=== PATIENT | male | born 1950 | race Caucasian/White ===

== ENCOUNTER 2019-10-24 14:04 | Emergency (ER) | payer MEDICARE ==
[~2019-10-24] VITALS: Ht 165.1 cm; Wt 65.8 kg
[2019-10-24 14:42] LABS: BASOPHILS ABSOLUTE AUTO 0.03 K/mm3 (0.00-0.23); BASOPHILS PERCENT AUTO 0 % (0-2); EOSINOPHILS ABSOLUTE AUTO 0.19 K/mm3 (0.00-0.68); EOSINOPHILS PERCENT AUTO 2 % (0-6); Hematocrit 47.6 % (37.0-53.0); Hemoglobin 16.2 g/dL (13.5-17.5); IMMATURE GRAN ABSOLUTE AUTO 0.03 K/mm3 (0.00-0.10); IMMATURE GRAN PERCENT AUTO 0 % (0-1); LYMPHOCYTES ABSOLUTE AUTO 3.05 K/mm3 (0.84-5.20); LYMPHOCYTES PERCENT AUTO 34 % (21-46); MONOCYTES PERCENT AUTO 7 % (4-13); Mean Corpuscular Volume 94 fL (80-100); Mean Platelet Volume 10.4 fL (9.1-12.4); NEUTROPHILS ABSOLUTE AUTO 4.98 K/mm3 (1.96-9.15); NEUTROPHILS PERCENT AUTO 56 % (41-73); Platelet Count 173 K/mm3 (150-400); RDW Coefficient Variation 12.6 % (11.7-14.2); RDW Standard Deviation 43.4 fL (35.1-46.3); Red Blood Cell Count 5.06 M/mm3 (4.30-5.90); White Blood Cell Count 8.88 K/mm3 (4.00-11.30)
[2019-10-24] MEDS ORDERED: VENL25 PO (14:45)
[2019-10-24] MEDS ORDERED: ATOR20 PO (14:45)
[2019-10-24] MEDS ORDERED: GABA300 PO (14:45)
[2019-10-24] MEDS ORDERED: ASPI81CH PO (14:46)
[2019-10-24 14:56] LABS: Prothrombin Time Results 10.7 Sec (9.7-11.5)
[2019-10-24 15:06] LABS: Alanine Aminotransfer (ALT/SGP 29 U/L (12-78); Albumin, Blood 3.4 g/dL (3.4-5.0); Albumin/Globulin Ratio 0.9 (0.8-1.8); Alk Phos 126 U/L (50-136); Anion Gap 6 mmol/L (6-16); Aspartate Aminotrans (AST/SGOT 18 U/L (12-37); Bilirubin, Total 0.4 mg/dL (0.1-1.0); Blood Urea Nitrogen 16 mg/dL (8-24); CO2, Blood 27 mmol/L (21-32); Calcium, Blood 8.8 mg/dL (8.5-10.1); Chloride, Blood 107 mmol/L (98-108); Creatinine, Blood 1.07 mg/dL (0.60-1.20); Ethanol (Alcohol), Blood, Med <3 mg/dL; Globulin, Blood 3.9 g/dL (2.2-4.0); Glomerular Filtration Rate >60 (60-); Glucose, Blood 169 mg/dL (70-99); Potassium, Blood 4.1 mmol/L (3.5-5.5); Sodium, Blood 140 mmol/L (136-145); Total Protein, Blood 7.3 g/dL (6.4-8.2)
== END 2019-10-24 16:49 | disposition home or self-care (01) ==
LOC: ER 14:04
PROVIDERS: Physician Assistant
DX: R41.0 Disorientation, unspecified (principal); R51 Headache; Z88.5 Allergy status to narcotic agent; Z79.899 Other long term (current) drug therapy; Z79.82 Long term (current) use of aspirin; I25.2 Old myocardial infarction; E78.5 Hyperlipidemia, unspecified; F17.200 Nicotine dependence, unspecified, uncomplicated
CPT/HCPCS: 70450; 80053; 82947; 85025; 85610; 93005; 93010; 96374; 96375; 99285-25; A9270-GY; G0480; J1200; J1885; J2765

== ENCOUNTER 2020-08-07 15:17 | Emergency (ER) | payer OTHER ==
[~2020-08-07] VITALS: Ht 167.6 cm; Wt 68.0 kg
[~2020-08-07 15:17] MED LIST: ASPI81CH PO; ATOR20 PO; GABA300 PO; VENL25 PO
[2020-08-07] MEDS ORDERED: IBUP800 PO (17:14)
[2020-08-07] MEDS ORDERED: OXYACE7.5T PO (17:14)
== END 2020-08-07 18:05 | disposition home or self-care (01) ==
LOC: ER 15:17
DX: S22.32XA Fracture of one rib, left side, initial encounter for closed fracture (principal); F17.200 Nicotine dependence, unspecified, uncomplicated; Z88.5 Allergy status to narcotic agent; Z79.82 Long term (current) use of aspirin; Z79.899 Other long term (current) drug therapy; W10.9XXA Fall (on) (from) unspecified stairs and steps, initial encounter
CPT/HCPCS: 71101; 99283-25

== ENCOUNTER 2024-03-28 18:40 | Observation (INO) | payer MEDICARE ==
[~2024-03-28] VITALS: Ht 167.6 cm; Wt 60.5 kg
[~2024-03-28 18:40] MED LIST changes: +IBUP800 PO; +OXYACE7.5T PO
[2024-03-28 18:59] LABS: BASOPHILS ABSOLUTE AUTO 0.04 K/mm3 (0.00-0.23); BASOPHILS PERCENT AUTO 1 % (0-2); EOSINOPHILS ABSOLUTE AUTO 0.24 K/mm3 (0.00-0.68); EOSINOPHILS PERCENT AUTO 3 % (0-6); Hematocrit 45.3 % (37.0-53.0); IMMATURE GRAN ABSOLUTE AUTO 0.02 K/mm3 (0.00-0.10); IMMATURE GRAN PERCENT AUTO 0 % (0-1); LYMPHOCYTES ABSOLUTE AUTO 4.07 K/mm3 (0.84-5.20); LYMPHOCYTES PERCENT AUTO 46 % (21-46); MONOCYTES ABSOLUTE AUTO 0.67 K/mm3 (0.16-1.47); MONOCYTES PERCENT AUTO 8 % (4-13); Mean Corpuscular HGB 31.6 pg (26.0-34.0); Mean Corpuscular HGB Conc 35.3 g/dL (31.5-36.5); Mean Corpuscular Volume 89 fL (80-100); Mean Platelet Volume 9.7 fL (9.1-12.4); NEUTROPHILS PERCENT AUTO 43 % (41-73); Platelet Count 206 K/mm3 (150-400); RDW Coefficient Variation 13.1 % (11.7-14.2); RDW Standard Deviation 42.8 fL (35.1-46.3); Red Blood Cell Count 5.07 M/mm3 (4.30-5.90); White Blood Cell Count 8.84 K/mm3 (4.00-11.30)
[2024-03-28 19:18] LABS: Albumin, Blood 3.6 g/dL (3.4-5.0); Albumin/Globulin Ratio 0.9 (0.8-1.8); Bilirubin, Total 0.2 mg/dL (0.1-1.0); Bun/Creatinine Ratio 19.6 (12.0-20.0); Calcium, Blood 9.2 mg/dL (8.5-10.1); Creatinine, Blood 1.12 mg/dL (0.60-1.20); Globulin, Blood 3.9 g/dL (2.2-4.0); Potassium, Blood 4.2 mmol/L (3.5-5.5); Total Protein, Blood 7.5 g/dL (6.4-8.2)
[2024-03-28] MEDS ORDERED: FLU VACC TS2024-25(6MOS UP)/PF 45 MCG/0.5 ML SYRINGE IM ONE (20:10)
[2024-03-28] MEDS ORDERED: NS 1,000 ML IV SCH (20:15)
[2024-03-28] MEDS ORDERED: Dose Adjust by Pharmacy XX STA (20:35)
[2024-03-28] MEDS ORDERED: Heparin Sodium,Porcine/0.5 NS 500 ML IV SCH (20:35)
[2024-03-28] MEDS ORDERED: Heparin Sodium 5000 Units/ML 1ML MDV IV ONE (20:35)
[2024-03-28 20:56] LABS: Anti-Xa UFH, PHA Monitoring <0.10 IU/mL; International Normalized Ratio 1.06; Prothrombin Time Results 11.3 Sec (9.7-11.5)
[2024-03-28] MEDS ORDERED: Metoprolol Tartrate 25 MG Tab PO SCH (21:00)
[2024-03-28] MEDS ORDERED: DESV50 PO (22:35)
[2024-03-28 23:00] VITALS: BP 120/66
[2024-03-29] MEDS ORDERED: Insulin Human Lispro 100 Units/ML 3ML Syringe SC SCH
[2024-03-29] MEDS ORDERED: Dose Adjust by Pharmacy XX STA ×3 (03:41→16:27)
[2024-03-29 04:20] VITALS: BP 118/67
--- NOTE | 2024-03-29 04:30 | NUR ---
SHIFT SUMMARY ROCIO WAS ALERT, FULLY ORIENTED, AND ABLE TO SELF TRANSFER TO BED ON ARRIVAL FROM ED. PT REPORTS THAT THE SYMPTOMS THAT BROUGHT HIM IN HAVE SUBSIDED. PT DENIES PAIN, CHEST PRESSURE, DIZZINESS, AND SOB. HE STATES THAT HE IS FEELING AT HIS BASELINE AT THIS TIME. ADMIT COMPLETE. PT IND IN ROOM. PT PRESENT AT BEDSIDE. TELE REPORTS ONE 6 SECOND RUN OF SVT, PT WAS ASYMPTOMATIC. NO NEW COMPLAINTS, NO ACUTE EVENTS, NO NOTED CHANGES TO PT CONDITION SINCE ARRIVAL. PT RESTING WITH CALL LIGHT IN REACH.
[2024-03-29 07:44] VITALS: BP 124/81
[2024-03-29] MEDS ORDERED: Atorvastatin 40 MG Tab PO SCH (09:00)
[2024-03-29] MEDS ORDERED: Aspirin 81 MG Chew PO SCH (09:00)
--- NOTE | 2024-03-29 09:45 | NUR ---
PT OK TO EAT BREAKFAST AND TAKE AM MEDS PER NUCLE[facility] MED
[2024-03-29 09:49] VITALS: BP 106/62
--- NOTE | 2024-03-29 12:03 | NUR ---
PT HAS BEEN BRADYCARDIC IN THE 50'S CONSISTENTLY AND HAS DROPPED TO 49 AT TIMES PER DAVID IN TELE. DENIES CHEST PAIN/DIZZINESS/SOB. DR. WASHINGTON NOTIFIED OF HYPOTENSION THIS AM, BRADYCARDIA, AND THAT PT'S SCHEDULED METOPROLOL WAS HELD THIS AM. TO HOLD METOPROLOL FOR HR UNDER [address] WASHINGTON, NO FURTHER ORDERS RECEIEVED.
[2024-03-29] MEDS ORDERED: NS 1,000 ML IV ONE (12:11)
[2024-03-29] MEDS ORDERED: Regadenoson 0.4 MG/5 ML SYRINGE ONE (13:01)
[2024-03-29] MEDS ORDERED: Aminophylline 250MG / 10ML 10 ML Vial ONE (13:01)
[2024-03-29 13:17] VITALS: BP 115/70
[2024-03-29] MEDS ORDERED: ATOR40TA PO (15:41)
[2024-03-29] MEDS ORDERED: METO25 PO (15:42)
--- NOTE | 2024-03-29 17:33 | NUR ---
update: Pt stress test results given to physicians. Pt cleared for discharge.
--- NOTE | 2024-03-29 18:05 | NUR ---
SHIFT SUMMARY PT IS ALERT AND IND IN ROOM, DENIES CHEST PAIN/SOB. NO DIZZINESS WHILE AMBULATING. PT DENIES ANY CHEST PAIN THIS SHIFT. SEE NOTE FROM [employer]Y HELPER [facility] REGARDING STRESS TEST RESULTS. PT INSTRUCTED TO F/U W/ PCP AND TAKE PRESCRIBED MEDICATIONS, EDUCATED PT ON IMPORTANCE OF MEDICAL COMPLIANCE PT STATES HE "DOES NOT LIKE GOING TO THE DOCTOR OR TAKING MEDICATIONS". MEDS FAXED TO [facility]. REVIEWED DC INSTRUCTIONS W/ PT, COPY GIVEN TO PT. PT'S VS HAVE BEEN STABLE THIS SHIFT, PT WAS SINUS RHYTHM IN THE 70'S BEFORE TELE WAS DC'D. PT REFUSED WHEELCHAIR AND AMBULATED WITH SPOUSE INDEPENDENTLY TO PRIVATE RIDE HOME W/ PERSONAL BELONGINGS IN HAND.
== END 2024-03-29 17:56 | disposition home or self-care (01) ==
LOC: ER 18:40 → PCU 18:41 → ERHOLD 18:41 → PCU 22:13
PROVIDERS: Nurse Practitioner Acute Care; Student in an Organized Health Care Education/Training Program; ADMIT Internal Medicine
DX: I25.110 Atherosclerotic heart disease of native coronary artery with unstable angina pectoris (principal); E78.5 Hyperlipidemia, unspecified; F32.A Depression, unspecified; E11.9 Type 2 diabetes mellitus without complications; F17.210 Nicotine dependence, cigarettes, uncomplicated; Z79.899 Other long term (current) drug therapy; Z88.8 Allergy status to other drugs, medicaments and biological substances; Z91.148 Patient's other noncompliance with medication regimen for other reason
CPT/HCPCS: 36415; 71046; 78452; 80053; 82947; 83690; 84484; 85025; 85520; 85610; 85730; 93005; 93010; 93017; 93306; 96365; 96376; 99285-25; A9270; A9500; G0378; J0280; J1644; J2785; J7030

== ENCOUNTER → 2024-04-04 | Outpatient (CLI) | payer MEDICARE ==
[~2024-04-04] MED LIST changes: +ATOR40TA PO; +DESV50 PO; +METO25 PO
[2024-04-04 12:59] LABS: Microalb/Creat Ratio UR, Rand 14.812 mg/g (0.000-30.000); Microalbumin, Random Urine 19.7 mg/L (0.000-20.000)
== END | disposition home or self-care (01) ==
LOC: LAB 10:00 → LAB SHORT 10:00
PROVIDERS: Nurse Practitioner Family
DX: E11.69 Type 2 diabetes mellitus with other specified complication (principal); E11.59 Type 2 diabetes mellitus with other circulatory complications
CPT/HCPCS: 82043; 82570

== ENCOUNTER 2024-11-04 15:41 | Emergency (ER) | payer MEDICARE, OTHER ==
[~2024-11-04] VITALS: Ht 167.6 cm; Wt 59.0 kg
[2024-11-04 15:59] VITALS: BP 135/99
[2024-11-04 16:48] LABS: BASOPHILS ABSOLUTE AUTO 0.03 K/mm3 (0.00-0.23); BASOPHILS PERCENT AUTO 0 % (0-2); EOSINOPHILS ABSOLUTE AUTO 0.01 K/mm3 (0.00-0.68); EOSINOPHILS PERCENT AUTO 0 % (0-6); Hematocrit 40.5 % (37.0-53.0); Hemoglobin 13.8 g/dL (13.5-17.5); IMMATURE GRAN ABSOLUTE AUTO 0.06 K/mm3 (0.00-0.10); IMMATURE GRAN PERCENT AUTO 1 % (0-1); LYMPHOCYTES ABSOLUTE AUTO 1.59 K/mm3 (0.84-5.20); LYMPHOCYTES PERCENT AUTO 15 % (21-46); MONOCYTES ABSOLUTE AUTO 0.95 K/mm3 (0.16-1.47); MONOCYTES PERCENT AUTO 9 % (4-13); Mean Corpuscular HGB Conc 34.1 g/dL (31.5-36.5); Mean Corpuscular Volume 92 fL (80-100); NEUTROPHILS ABSOLUTE AUTO 8.34 K/mm3 (1.96-9.15); NEUTROPHILS PERCENT AUTO 76 % (41-73); NRBC ABSOLUTE 0.00 K/mm3 (0.00-0.02); NRBC Auto 0.0 /100 WBC (0.0-0.2); Platelet Count 160 K/mm3 (150-400); RDW Coefficient Variation 13.2 % (11.7-14.2); RDW Standard Deviation 44.7 fL (35.1-46.3)
[2024-11-04 17:43] LABS: Alanine Aminotransfer (ALT/SGP 20.0 U/L (12-78); Albumin, Blood 2.6 g/dL (3.4-5.0); Albumin/Globulin Ratio 0.6 (0.8-1.8); Anion Gap 8.0 mmol/L (3-11); Aspartate Aminotrans (AST/SGOT 13.0 U/L (12-37); Bilirubin, Total 0.4 mg/dL (0.1-1.0); Blood Urea Nitrogen 26.0 mg/dL (8-24); CO2, Blood 27.0 mmol/L (21-32); Calcium, Blood 8.6 mg/dL (8.5-10.1); Chloride, Blood 101.0 mmol/L (98-108); Creatinine, Blood 1.17 mg/dL (0.60-1.20); Globulin, Blood 4.4 g/dL (2.2-4.0); Glucose, Blood 188.0 mg/dL (70-99); Potassium, Blood 3.4 mmol/L (3.5-5.5); Sodium, Blood 133.0 mmol/L (136-145); Total Protein, Blood 7.0 g/dL (6.4-8.2)
[2024-11-04 18:27] LABS: Source, Urine Clean Catch
[2024-11-04 18:41] LABS: Bilirubin, Urine Neg (Neg); Color, Urine Yellow (P-Yellow); Glucose Qualitative, Urine Neg (Neg); Ketones, Urine Neg (Neg); Leukocyte Esterase, Urine 3+ (Neg); Protein, Urine 2+ (Neg); Specific Gravity, Urine 1.010 (1.003-1.022); Urobilinogen, Urine NORM (Normal)
[2024-11-04 18:49] LABS: White Blood Cells, Urine 50-100 /hpf (0-5)
[2024-11-04] MEDS ORDERED: RX Prepack 2 Tabs Ondansetron ODT 4MG UD ONE (19:20)
[2024-11-04] MEDS ORDERED: BACTRIM DS TAB1 EAC1 PO (19:20)
[2024-11-04] MEDS ORDERED: Trimethoprim/Sulfamethoxazole DS Tab PO ONE (19:20)
[2024-11-04] MEDS ORDERED: Pyridium100 MG PO (19:20)
[2024-11-04] MEDS ORDERED: ONDA4 PO (19:20)
== END 2024-11-04 20:10 | disposition home or self-care (01) ==
LOC: ER 15:41
PROVIDERS: Student in an Organized Health Care Education/Training Program
DX: N12 Tubulo-interstitial nephritis, not specified as acute or chronic (principal); R55 Syncope and collapse; E78.00 Pure hypercholesterolemia, unspecified; F17.210 Nicotine dependence, cigarettes, uncomplicated; Z88.5 Allergy status to narcotic agent; Z88.8 Allergy status to other drugs, medicaments and biological substances; Z79.82 Long term (current) use of aspirin; Z79.899 Other long term (current) drug therapy
CPT/HCPCS: 71046; 74177; 80053; 81001; 83690; 84484; 85025; 87077; 87086; 87186; 93005; 93010; 99284-25; A9270; Q9967

== ENCOUNTER 2024-12-13 12:25 | Emergency (ER) | payer MEDICARE, OTHER ==
[~2024-12-13] VITALS: Ht 167.6 cm; Wt 59.0 kg
[~2024-12-13 12:25] MED LIST changes: +BACTRIM DS TAB1 EAC1 PO; +ONDA4 PO; +Pyridium100 MG PO
[2024-12-13] MEDS ORDERED: DiphenhydrAMINE HCl 50 MG/ML 1ML Vial IV ONE (13:00)
[2024-12-13 13:14] LABS: BASOPHILS ABSOLUTE AUTO 0.04 K/mm3 (0.00-0.23); BASOPHILS PERCENT AUTO 1 % (0-2); EOSINOPHILS ABSOLUTE AUTO 0.54 K/mm3 (0.00-0.68); EOSINOPHILS PERCENT AUTO 7 % (0-6); Hematocrit 45.2 % (37.0-53.0); Hemoglobin 15.4 g/dL (13.5-17.5); IMMATURE GRAN ABSOLUTE AUTO 0.02 K/mm3 (0.00-0.10); IMMATURE GRAN PERCENT AUTO 0 % (0-1); LYMPHOCYTES ABSOLUTE AUTO 2.43 K/mm3 (0.84-5.20); LYMPHOCYTES PERCENT AUTO 31 % (21-46); MONOCYTES ABSOLUTE AUTO 0.64 K/mm3 (0.16-1.47); MONOCYTES PERCENT AUTO 8 % (4-13); Mean Corpuscular HGB Conc 34.1 g/dL (31.5-36.5); Mean Corpuscular Volume 92 fL (80-100); NEUTROPHILS ABSOLUTE AUTO 4.23 K/mm3 (1.96-9.15); NEUTROPHILS PERCENT AUTO 54 % (41-73); NRBC ABSOLUTE 0.00 K/mm3 (0.00-0.02); NRBC Auto 0.0 /100 WBC (0.0-0.2); Platelet Count 184 K/mm3 (150-400); RDW Coefficient Variation 13.9 % (11.7-14.2); RDW Standard Deviation 47.6 fL (35.1-46.3)
[2024-12-13 13:44] LABS: Alanine Aminotransfer (ALT/SGP 16.0 U/L (12-78); Albumin, Blood 3.5 g/dL (3.4-5.0); Albumin/Globulin Ratio 0.9 (0.8-1.8); Anion Gap 4.0 mmol/L (3-11); Aspartate Aminotrans (AST/SGOT 13.0 U/L (12-37); Bilirubin, Total 0.3 mg/dL (0.1-1.0); Blood Urea Nitrogen 19.0 mg/dL (8-24); CO2, Blood 32.0 mmol/L (21-32); Calcium, Blood 9.1 mg/dL (8.5-10.1); Chloride, Blood 105.0 mmol/L (98-108); Creatinine, Blood 0.92 mg/dL (0.60-1.20); Globulin, Blood 3.9 g/dL (2.2-4.0); Glucose, Blood 110.0 mg/dL (70-99); Potassium, Blood 4.2 mmol/L (3.5-5.5); Sodium, Blood 137.0 mmol/L (136-145); Total Protein, Blood 7.4 g/dL (6.4-8.2)
[2024-12-13 15:59] VITALS: BP 148/75
== END 2024-12-13 16:03 | disposition home or self-care (01) ==
LOC: ER 12:25
PROVIDERS: Student in an Organized Health Care Education/Training Program
DX: T78.40XA Allergy, unspecified, initial encounter (principal); Z88.5 Allergy status to narcotic agent; Z79.82 Long term (current) use of aspirin; Z79.899 Other long term (current) drug therapy; X58.XXXA Exposure to other specified factors, initial encounter
CPT/HCPCS: 80053; 85025; 96374; 96375; 99283-25; J1200; J2919